=== PATIENT | male | born 1990 | race African-American/Black ===

== ENCOUNTER 2025-07-28 09:01 | Emergency (ER) | payer OTHER, SELFPAY ==
[2025-07-28 09:12] VITALS: BP 125/78; PULSE 51; RESP 16; TEMP 36.6; O2SAT 100; BMI 31.4
--- NOTE | 2025-07-28 10:01 | ED_ITS ---
HPI - Back Pain/Injury General Chief Complaint: Back Pain/Injury Stated Complaint: back pain x6 days Time Seen by Provider: 07/28/25 10:01 Source: patient Mode of arrival: Ambulatory Limitations: no limitations History of Present Illness HPI Narrative: 34-year-old male with complaint of low back pain x1 week, movement makes things worse. Patient states he had his FIT test for the started to have little bit of lower back discomfort for several days was not getting any worse and has not increased over the last day. Patient states he noticed when he bent over to take off his socks he has a significant increase in pain. States it is a little bit off to the left does not radiate. He denies paresthesias. Denies any saddle anesthesia. No fecal or urinary incontinence. No weakness in his extremities. Notes movement and particularly movements such as bending and flexing make it worse. No fevers. He does work out regularly. He denies any trauma or injuries otherwise. States no daily medications, no prior surgeries. No known drug allergies. Vapes tobacco occasional alcohol in the weekends, no recreational or IV drugs. Related Data Previous Rx's ?Medication ?Instructions ?Recorded cyclobenzaprine 10 mg tablet 10 mg PO TID PRN muscle s pasm #10 07/28/25 tabs lidocaine 5 % topical patch 1 patch topical DAILY #30 ea 07/28/25 Allergies Allergy/AdvReac Type Severity Reaction Status Date / Time No Known Drug Allergies Allergy Verified 07/28/25 09:12 Review of Systems Review of Systems ROS Unobtainable: All systems reviewed & are unremarkable except as noted in HPI and below Patient History Social History Smoking Status: Current every day smoker Smoking Status: Current every day smoker tobacco type: vaping Exam Narrative Exam Narrative: GENERAL: Alert and oriented x three, male in mild distress HEENT: Head normocephalic, atraumatic, EOMI, pupils reactive, face symmetric, moist mucous membranes NECK: Supple, full range of motion CARDIOVASCULAR: Regular rate and rhythm without murmurs, rubs or gallops. RESPIRATORY: Breath sounds equal bilaterally, no wheezes rales or rhonchi. ABDOMEN: Soft, nontender. Normoactive bowel sounds all 4 quadrants. No guarding or rebound, rigidity, no mass : No CVA tenderness BACK: No cervical, thoracic or lumbar vertebral point tenderness. Patient has some mild tenderness over the left lateral lumbar region. Does has a mission tissue tightness. Patient has normal range of motion but moves slowly. Patient's gait is normal. No saddle anesthesia. Muscle strength is 5/5 in lower extremities, Sensation is intact in the lower extremities. EXTREMITIES: Normal range of motion, no clubbing or edema. Neurovascularly intact NEUROLOGICAL: Cranial nerves II through XII grossly intact. Moving all extremities SKIN: Warm, dry, no petechiae, no rashes or lesions. Initial Vital Signs Initial Vital Signs: Vital Signs Temperature 97.9 F 07/28/25 09:12 Pulse Rate 51 L 07/28/25 09:12 Respiratory Rate 16 07/28/25 09:12 Blood Pressure 125/78 07/28/25 09:12 Pulse Oximetry 100 07/28/25 09:12 Oxygen Delivery Method Room Air 07/28/25 09:12 Course Orders Ordered: Discontinued Medications Ketorolac Tromethamine (Ketorolac 30 Mg/Ml Vial) 30 mg IM NOW ONE Stop: 07/28/25 10:38 Last Admin: 07/28/25 10:50 Dose: 30 mg Documented By: HERNAN Vital Signs Vital signs: Vital Signs - 8 hr 07/28/25 09:12 07/28/25 11:05 Temperature 97.9 F Pulse Rate 51 L 52 L Respiratory Rate 16 16 Blood Pressure 125/78 118/66 Pulse Oximetry 100 100 Oxygen Delivery Method Room Air Room Air MDM - Back Pain/Injury MDM Narrative Medical decision making narrative: 34-year-old male who reports having some increased back pain for the past week, no traumas that he recalls. Patient states has not really had issues with a his back in the past. Has been slowly worsening. Some tenderness little bit to the left of his lower back but no other red flag symptoms. Do not feel that he needs imaging at this time but discussed if persistent needs repeat evaluation and follow up. We also discussed return precautions and red flag symptoms. Patient had Toradol IM here in the department We will give short course of muscle relaxer and patient asked if he can have lidocaine patches. Discharge Plan Departure Patient Disposition: Home Clinical Impression: Strain of lumbar region Instructions: DI for Low Back Pain Activity Restrictions/Additional Instructions: Follow up for recheck if your symptoms are not improving over the next week. Please call for an appointment with your primary care physician. I do recommend that you rest, decrease your activity, I would avoid weight lifting and activities that is stress or strain your back for the next several days. You can take acetaminophen up to a 1000 mg every 6 hours and/or ibuprofen up to 600 mg every 6 hours as needed for pain. You can also use the lidocaine patch to the affected area daily. If needed you can take muscle relaxer 1 tablet every 8 hours as needed. This medication can make you sleepy do not drive, perform hazardous activities or make major decisions while taking it. Prescription sent to [facility] pharmacy in [place]. Please return if you develop fevers, rapidly worsening pain, new numbness, weakness or loss of sensation, any loss of bowel or bladder control, if you can not feel the groin or genital area, inability or difficulty with walking, lifting or moving your extremities or other new or concerning changes. Prescriptions: New lidocaine 5 % adhesive patch,medicated 1 patch topical DAILY Qty: 30 0RF Rx Instructions: leave on most painful area for up to 12 hrs cyclobenzaprine 10 mg tablet 10 mg PO TID PRN (Reason: muscle spasm) Qty: 10 0RF Referrals: [facility] [Primary Care Provider, Family Practice] Stand Alone Forms: Patient Portal/API, Work Release Note
[2025-07-28] MEDS: KETOROLAC 30 MG/ML VIAL IM (10:50)
[2025-07-28 11:05] VITALS: BP 118/66; PULSE 52; RESP 16; O2SAT 100
== END 2025-07-28 11:07 | disposition home or self-care (01) ==
PROVIDERS: Emergency Provider Emergency Medicine
DX: S39.012A Strain of muscle, fascia and tendon of lower back, initial encounter (principal)
CPT/HCPCS: 96372; 99283; J1885